=== PATIENT | female | born 1955 | race Caucasian/White ===

== ENCOUNTER 2016-10-18 21:11 | Emergency (ER) | payer MEDICARE, OTHER ==
--- NOTE | 2016-10-18 21:17 | ED Physician Documentation ---
General Adult - HISTORIAN Historian: patient - HPI Stated Complaint: syncopal episode Chief Complaint: General Adult Additional Information: [place] Stood up and felt hot, sweaty, like she couldn't breathe. Saw black. Thinks she had LOC. Hit left side of head on floor and now has all-over throbbing CHRISTENSEN. Was nauseated, but received zofran in ambulance. Said to have normal 12 lead EKG in ambulance. Has had near-syncopal episodes since at least age 14. FSG 125 in ER. - ROS CONST: sweating (just before LOC). 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), other (multiple near -syncopal episodes since 15 y/o) Other History: CVA (4 years ago) Surgeries/Procedures: , other (placido carpal tunnel, knee surgeries) Allergies/Adverse Reactions: Allergies Allergy/AdvReac Type Severity Reaction Status Date / Time codeine Allergy Verified 10/18/16 22:08 morphine Allergy Verified 10/18/16 22:08 Home Medications: Ambulatory Orders Medication Instructions Recorded Aspirin [Xavier] 81 mg PO QDAY 10/18/16 Levothyroxine Sodium [Levoxyl] 88 mcg PO QDAY 10/18/16 Nitrofurantoin Monohyd/M-Cryst 100 mg PO Q12 14 Days 10/18/16 [Macrobid] - SOCIAL HX Smoking History: cigarettes (1 PPD x 47 years) Alcohol Use: occasionally (3 beers/week) Drug Use: none - FAMILY HX Family History: No - REVIEWED ASSESSMENTS Nursing Assessment Reviewed: Yes Vitals Reviewed: Yes Progress - Progress Progress: Computed tomography of the head without contrast History: Syncope Findings: Transverse brain sections are obtained without contrast revealing normal-sized ventricles and sulci given patient age. Carrillo white differentiation is intact. There is no intracranial hemorrhage, mass lesion, or fluid collection. The skull is intact. Visualized sinuses and mastoid air cells are clear. Impression: Normal computed tomography of the head. Electronically signed on Oct 18, 2016 9:54:19 PM CDT by: Garry Taylor Chest 2 views History: Syncope. Smoker. Findings: Calcified granulomas are present. The lungs are clear of infiltrate or effusion. Heart size and pulmonary vascularity are normal. Osseous structures are unremarkable. Mild hyperinflation is present. Impression: Mild hyperinflation and old granulomatous disease. Electronically signed on Oct 18, 2016 10:01:10 PM CDT by: Garry Taylor EKG: sinus rhythm, 80 BPM, no ischemic changes ED Results Lab/Radiology - Orders Orders: ED Orders Category Date Time Status Continuous EKG monitoring Q1H Care 10/18/16 21:14 Ordered Continuous Pulse Oximetry Q1H Care 10/18/16 21:[address] Saline Lock/IV Now Care 10/18/16 21:14 Ordered CHEST P.A.&LAT 2 VIEWS [RAD] Stat Exams 10/18/16 Ordered CBC/PLATELET/DIFF Routine Lab 10/18/16 Ordered CMP Routine Lab 10/18/16 Ordered PT-INR Routine Lab 10/18/16 Ordered TROPONIN I (cTnI) Stat Lab 10/18/16 Ordered URINALYSIS Routine Lab 10/18/16 Ordered 0.9 % Sodium Chloride [Normal Saline] 1,000 ml Med 10/18/16 21:30 Ordered IV Q2H EKG WITH COMPARISON Stat Ther 10/18/16 Ordered General Adult Physical Exam - PHYSICAL EXAM GENERAL APPEARANCE: no distress EENT: eye inspection normal, ENT inspection normal, pharynx normal NECK: normal inspection, supple RESPIRATORY: no resp distress, breath sounds normal CVS: reg rate & rhythm, heart sounds normal, no murmur ABDOMEN: soft, normal bowel sounds, non-tender BACK: normal inspection, no CVA tenderness, other (no midline tenderness) SKIN: warm/dry, normal color EXTREMITIES: no evidence of injury, no edema NEURO: CN's nml as tested, motor nml, sensation nml Discharge Clincal Impression: Syncope Qualifiers: Syncope type: unspecified Qualified Code(s): R55 - Syncope and collapse Urinary tract infection Qualifiers: Urinary tract infection type: acute cystitis Hematuria presence: without hematuria Qualified Code(s): N30.00 - Acute cystitis without hematuria Prescriptions: Nitrofurantoin Monohyd/M-Cryst [Macrobid] 100 mg PO Q12 14 Days Additional Instructions: Follow up with your provider in the next 7-10 days. Take all the antibiotics as prescribed until they are completely gone. Drink plenty of water. Home Medications: Ambulatory Orders Aspirin [Xavier] 81 mg PO QDAY 10/18/16 Levothyroxine Sodium [Levoxyl] 88 mcg PO QDAY 10/18/16 Nitrofurantoin Monohyd/M-Cryst [Macrobid] 100 mg PO Q12 14 Days 10/18/16 Condition: Good Disposition: 01 HOME, SELF-CARE Decision to Admit: NO Decision Time: 23:50
[2016-10-18] MEDS ORDERED: 0.9 % SODIUM CHLORIDE 1,000 ML IV ONE (21:19)
[2016-10-18] MEDS ORDERED: 0.9 % SODIUM CHLORIDE 1,000 ML IV SCH (21:30)
[2016-10-18 22:13] LABS: eGFR (African) > 60; eGFR (Non-African) > 60
[2016-10-18 22:19] LABS: BASOPHILS % 0.6 (0.0-1.5); EOSINOPHILS % 2.1 % (0.0-6.8); MEAN CORPUSCULAR HEMOGLOBIN 30.6 pg (28.0-34.0); MEAN CORPUSCULAR VOLUME 93.8 fl (80.0-100.0); MONOCYTES % 2.3 % (0.0-11.0); NEUTROPHILS # 5.8 # k/uL (1.4-7.7)
[2016-10-18] MEDS ORDERED: NITROFURANTOIN 100 MG CAPSULE PO ONE (23:55)
--- NOTE | 2016-10-19 00:56 | Diagnostic Imaging Report ---
[facility] [address] [facility] [address] Report Submission Date: Oct 18, 2016 10:01:10 PM CDT Patient Study Name: YAMILA KUNZ Date: Oct 18, 2016 9:41:31 PM CDT Modality Type: CR Gender: F Description: CHEST : 53 Institution: [facility] Physician: BLANCA IZAGUIRRE - ER Chest 2 views History: Syncope. Smoker. Findings: Calcified granulomas are present. The lungs are clear of infiltrate or effusion. Heart size and pulmonary vascularity are normal. Osseous structures are unremarkable. Mild hyperinflation is present. Impression: Mild hyperinflation and old granulomatous disease. Electronically signed on Oct 18, 2016 10:01:10 PM CDT by: Garry LORA
--- NOTE | 2016-10-19 00:57 | Diagnostic Imaging Report ---
[facility] [address] [facility] [place], [place]. [address] Report Submission Date: Oct 18, 2016 9:54:19 PM CDT Patient Study Name: YAMILA KUNZ Date: Oct 18, 2016 9:33:33 PM CDT Modality Type: CT\SR Gender: F Description: CT BRAIN W/O CONTRAST : 53 Institution: [facility] Physician: BLANCA IZAGUIRRE - BEN Computed tomography of the head without contrast History: Syncope Findings: Transverse brain sections are obtained without contrast revealing normal-sized ventricles and sulci given patient age. Carrillo white differentiation is intact. There is no intracranial hemorrhage, mass lesion, or fluid collection. The skull is intact. Visualized sinuses and mastoid air cells are clear. Impression: Normal computed tomography of the head. Electronically signed on Oct 18, 2016 9:54:19 PM CDT by: Garry LORA
[2016-10-19 01:42] VITALS: BP 120/78
[2016-10-19 05:40] LABS: APPEARANCE,URINE CLEAR (CLEAR); COLOR,URINE YELLOW (YELLOW); OCCULT BLOOD,URINE NEGATIVE (NEGATIVE); UROBILINOGEN URINE 0.2 Eu (0.2-1.0)
== END 2016-10-19 00:10 | disposition home or self-care (01) ==
LOC: ED 21:11
DX: R55 Syncope and collapse (principal); N30.00 Acute cystitis without hematuria
CPT/HCPCS: 70450; 71020; 80053; 81002; 84484; 85025; 85610; 93005; J7030; 96360; 99283